=== PATIENT | female | born 1955 | race Caucasian/White ===

== ENCOUNTER 2017-05-13 12:44 | Outpatient (CLI) | payer OTHER ==
--- NOTE | 2017-05-13 17:24 | MMO ---
BILATERAL MAMMOGRAMS: HISTORY: Screening mammography. COMPARISON: 05/02/2016, 03/21/2015, and 03/10/2014. FINDINGS: Extremely dense fibroglandular densities are present throughout each breast, decreasing sensitivity of exam. Benign-appearing calcifications are stable. Metallic marker in the left breast indicates skin scar. No dominant mass or suspicious calcifications are apparent. The study was evaluated with the assistance of computer-aided detection. IMPRESSION: BI-RADS category 2. Benign findings. Suggest routine followup. POS: ALVERTO
== END 2017-05-13 12:45 | disposition home or self-care (01) ==
LOC: MAMMO 12:44
PROVIDERS: ATTEND Family Medicine
DX: Z12.31 Encounter for screening mammogram for malignant neoplasm of breast (principal)
CPT/HCPCS: 77067; G0202

== ENCOUNTER 2018-05-18 09:29 | Outpatient (CLI) | payer OTHER | END 2018-05-18 09:30 | disposition home or self-care (01) | LOC: BICMAMMO 09:29 | PROVIDERS: ATTEND Family Medicine | DX: Z12.31 Encounter for screening mammogram for malignant neoplasm of breast (principal) | CPT/HCPCS: 77063; 77067 ==

== ENCOUNTER 2019-05-23 08:03 | Outpatient (CLI) | payer OTHER ==
--- NOTE | 2019-05-23 08:58 | MMO ---
Bilateral MAMMO Bilat Screen [facility]. CLINICAL HISTORY: Patient is 64 years old and is seen for screening. The patient has no family history of breast cancer. The patient has a history of other cancer at age 39. The patient has a history of left Excisional Biopsy at age 19 - fibroadenoma. VIEWS: The views performed were: bilateral craniocaudal with tomosynthesis and bilateral mediolateral oblique with tomosynthesis. FILMS COMPARED: The present examination has been compared to prior imaging studies performed at [facility] on 03/21/2015, 05/03/2016, 05/13/2017 and 05/18/2018. This study has been interpreted with the assistance of computer-aided detection. MAMMOGRAM FINDINGS: The breasts are extremely dense, which may lower the sensitivity of mammography. There are stable benign appearing calcifications seen in both breasts. There are also vascular calcifications. There are no suspicious masses, suspicious calcifications, or new areas of architectural distortion. IMPRESSION: THERE IS NO MAMMOGRAPHIC EVIDENCE OF MALIGNANCY. A ROUTINE FOLLOW-UP MAMMOGRAM IN 1 YEAR IS RECOMMENDED. THE RESULTS OF THIS EXAM WERE SENT TO THE PATIENT. ACR BI-RADS Category 2 - Benign finding MAMMOGRAPHY NOTE: 1. A negative mammogram report should not delay a biopsy if a dominant of clinically suspicious mass is present. 2. Approximately 10% to 15% of breast cancers are not detected by mammography. 3. Adenosis and dense breasts may obscure an underlying neoplasm. Reported by: SHAMAR CASSIDY MD Electonically Signed: [id number]
== END 2019-05-23 08:04 | disposition home or self-care (01) ==
LOC: BICMAMMO 08:03
PROVIDERS: ATTEND Family Medicine
DX: Z12.31 Encounter for screening mammogram for malignant neoplasm of breast (principal); Z85.89 Personal history of malignant neoplasm of other organs and systems
CPT/HCPCS: 77063; 77067

== ENCOUNTER 2019-10-28 12:43 | Emergency (ER) | payer OTHER ==
[2019-10-28 13:16] LABS: #Basophils 0.1 thou/uL (0.0-0.2); #Eosinphils 1.5 thou/uL (0.0-0.7); #Lymphocytes 2.6 thou/uL (1.20-3.40); #Monocytes 0.7 thou/uL (0.11-0.59); #Neutrophils 4.5 thou/uL (1.40-6.50); %Basophils 0.8 % (0.0-1.0); %Eosinophils 16.2 % (0.0-10.0); %Lymphocytes 28.2 % (21.0-51.0); %Neutrophils 47.7 % (42.0-75.0); Hemoglobin 14.7 g/dL (12.0-16.0); Mean Corpuscular Volume 96.8 fL (78.0-98.0); Mean Platelet Volume 7.3 fL (7.4-10.4); Platelet Count 280 thou/uL (130-400); RBC Distribution Width 11.3 % (11.5-14.5); White Blood Cell (WBC) Count 9.3 thou/uL (4.8-10.8)
[2019-10-28 13:26] LABS: INR-International Normal Ratio 0.9; PTT 29.2 SEC (22.9-36.1); Prothrombin Time 12.4 SEC (12.0-14.7)
[2019-10-28 13:40] LABS: ALT (SGPT) 15 U/L (8-55); AST (SGOT) 20 U/L (5-34); Albumin 4.8 g/dL (3.4-4.8); Alkaline Phosphatase 78 U/L (40-110); Anion Gap 15 mmol/L (10-20); BUN (Urea Nitrogen) 14 mg/dL (9.8-20.1); Bilirubin, Total 0.3 mg/dL (0.2-1.2); CK (CPK) 31 U/L (29-168); Calc. Creatinine Clearance 0 mL/min (70-130); Calcium 10.4 mg/dL (7.8-10.44); Carbon Dioxide 27 mmol/L (23-31); Chloride 103 mmol/L (98-107); Estimated GFR-MDRD 57; Globulin 2.8 g/dL (2.4-3.5); Glucose 113 mg/dL (80-115); Magnesium 2.2 mg/dL (1.6-2.6); Potassium 4.1 mmol/L (3.5-5.1); Protein, Total 7.6 g/dL (6.0-8.3); Sodium 141 mmol/L (136-145)
[2019-10-28 13:45] LABS: Bilirubin Negative (Negative); Blood, Urine Negative (Negative); Clarity Clear (Clear); Glucose, Urine (Dipstick) Normal (Negative); Leukocyte Negative Leu/uL (Negative); Nitrite Negative (Negative); Protein, Urine (Dipstick) Negative (Neg-Trace); Urobilinogen Normal mg/dL (Less than 2)
[2019-10-28] MEDS ORDERED: Diltiazem HCl 125 MG, Admixture Fee 1 EACH in Sodium Chloride 0.9% 100 ML IVPB SCH (14:00)
--- NOTE | 2019-10-28 14:26 | RAD ---
CHEST 1 VIEW PORTABLE: Date: 10/28/2019 HISTORY: Patient had funny feeling in her chest, atrial flutter. COMPARISON: None. FINDINGS: Heart size is within normal limits. Lungs are clear. No confluent pneumonia, overt edema, or pleural effusion. IMPRESSION: No significant acute intrathoracic disease. POS: C
[2019-10-28] MEDS ORDERED: Enoxaparin Sodium 60 MG/0.6 ML SYRINGE ONE ×2 (15:53→15:56)
[2019-10-28 16:39] LABS: Troponin I 0.012 ng/mL (< 0.028)
--- NOTE | 2019-10-28 19:55 | CON ---
DATE OF CONSULTATION: 10/28/2019 HISTORY OF PRESENT ILLNESS: I am seeing Ms. 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 Her problems are: 1. Newly found atypical atrial flutter, converted into atrial fibrillation, and eventually sinus rhythm. 2. No prior cardiac history, remote history of negative cardiac workup for palpitations 5 years ago. 3. CHADS-VASc score of 2 based on age and gender. ALLERGIES: NONE NOTED. MEDICATIONS AT HOME: None. SUBJECTIVE: Ms. Patton is here due to dizziness, lightheadedness, and palpitations. She was noted to be in atrial fibrillation/flutter by Dr. Edouard and then she was brought to the ER. Diltiazem drip was initiated and she developed a slowing heart rates and eventually the atrial flutter changed to atrial fibrillation and finally terminated. She had remained chest-pain free throughout these episodes. She denies PND, orthopnea, or any signs of heart failure. No fever, chills, cough, and currently is completely asymptomatic after the orthodoxy of sinus rhythm. REVIEW OF SYSTEMS: Rest of 12-point review of system otherwise unremarkable. PAST MEDICAL HISTORY: Negative for prior history of heart disease or heart attacks. No history of arrhythmias either. She never had a stroke. Denies bleeding issues except for skin bruising. SOCIAL HISTORY: She is to Dr. Patton who is a primary care physician. She denies smoking, EtOH, or drug abuse. FAMILY HISTORY: Significant for dizziness, lightheadedness of elderly father. No other family history is noted. DIAGNOSTIC STUDIES: EKG was reviewed, revealing initially an atrial flutter, which appears to be atypical, likely [id number] atrial flutter with ventricular rate of 162 beats per minute. Subsequent EKG revealed a more disorganized atrial fibrillation at 122 beats per minute. The QTc is 450 milliseconds on atrial fibrillation, EKG. LABORATORY DATA: Reviewed. White cell count 9.3, hemoglobin 14.7, and platelet count is 280. Sodium 141, potassium 4.1, BUN is 14, and creatinine 0.98. ASSESSMENT AND PLAN: Ms. Patton is a 64-year-old woman who had remote history of short palpitations, now developed a more sustained atrial flutter. The duration is likely short, still based on symptoms, started this morning, but the exact duration is unclear. The rates were very rapid while she was in atrial flutter with more moderate heart rates seen once she disorganized into atrial fibrillation. Eventually, she converted back to sinus rhythm while on diltiazem drip. We discussed the nature and etiology of atrial fibrillation and flutter with her and her over the phone. She understands the implication of atrial fibrillation including potential stroke risk. She has CHADS-VASc score of 2. Anticoagulation would be reasonable and potential future recurrences are possible. On the other hand, also discussed the preference for suppressing atrial fibrillation especially during the COVID epidemic. I would recommend Multaq 400 mg twice a day and possible EKG checks next week for evaluating her QT interval. Should not be sufficient to suppress her heart rates, alternative antiarrhythmic agents could be considered after the workup. She may benefit from echocardiogram in the near future. Discussed with Dr. You, on-call engine test cell technician. We will arrange that. I also discussed these issues with Dr. Obregon and we agreed on this plan. She is likely able to discharge from the ER and I will have to see her back in next 2-4 weeks. Job ID: [id number] [facility] MEDICAL CENTEREdwina
== END 2019-10-28 16:35 | disposition home or self-care (01) ==
LOC: ERS 12:43
DX: I48.91 Unspecified atrial fibrillation (principal)
CPT/HCPCS: 36415; 71045; 80053; 81003; 82550; 83735; 83880; 84443; 84484; 85025; 85610; 85730; 93005; 94760; 96361; 96365; 96366; 96375; 96376; J1650; J3490

== ENCOUNTER 2020-05-28 08:16 | Outpatient (CLI) | payer MEDICARE ==
--- NOTE | 2020-05-28 09:14 | MMO ---
Bilateral MAMMO Bilat Screen [facility]. CLINICAL HISTORY: Patient is 65 years old and is seen for screening. The patient has no family history of breast cancer. The patient has a history of other cancer at age 39. The patient has a history of left Excisional Biopsy at age 19 - fibroadenoma. VIEWS: The views performed were: bilateral craniocaudal with tomosynthesis and bilateral mediolateral oblique with tomosynthesis. FILMS COMPARED: The present examination has been compared to prior imaging studies performed at [facility] on 05/03/2016, 05/13/2017, 05/18/2018 and 05/23/2019. This study has been interpreted with the assistance of computer-aided detection. MAMMOGRAM FINDINGS: The breasts are extremely dense, which may lower the sensitivity of mammography. There are benign appearing and vascular calcifications seen in both breasts. There are no suspicious masses, suspicious calcifications, or new areas of architectural distortion. IMPRESSION: THERE IS NO MAMMOGRAPHIC EVIDENCE OF MALIGNANCY. A ROUTINE FOLLOW-UP MAMMOGRAM IN 1 YEAR IS RECOMMENDED. THE RESULTS OF THIS EXAM WERE SENT TO THE PATIENT. ACR BI-RADS Category 2 - Benign finding MAMMOGRAPHY NOTE: 1. A negative mammogram report should not delay a biopsy if a dominant of clinically suspicious mass is present. 2. Approximately 10% to 15% of breast cancers are not detected by mammography. 3. Adenosis and dense breasts may obscure an underlying neoplasm. Reported by: MARIS SOLIMAN MD Electonically Signed: [id number]
== END 2020-05-28 08:17 | disposition home or self-care (01) ==
LOC: BICMAMMO 08:16
PROVIDERS: ATTEND Family Medicine
DX: Z12.31 Encounter for screening mammogram for malignant neoplasm of breast (principal); Z85.89 Personal history of malignant neoplasm of other organs and systems
CPT/HCPCS: 77063; 77067

== ENCOUNTER 2021-05-31 11:11 | Outpatient (CLI) | payer MEDICARE | END 2021-05-31 11:12 | disposition home or self-care (01) | LOC: BICMAMMO 11:11 | PROVIDERS: ATTEND Family Medicine | DX: Z12.31 Encounter for screening mammogram for malignant neoplasm of breast (principal); Z85.89 Personal history of malignant neoplasm of other organs and systems | CPT/HCPCS: 77063; 77067 ==

== ENCOUNTER 2022-06-02 10:03 | Outpatient (CLI) | payer MEDICARE | END 2022-06-02 10:04 | disposition home or self-care (01) | LOC: BICMAMMO 10:03 | PROVIDERS: ATTEND Family Medicine | DX: Z12.31 Encounter for screening mammogram for malignant neoplasm of breast (principal); Z85.3 Personal history of malignant neoplasm of breast; Z85.89 Personal history of malignant neoplasm of other organs and systems | CPT/HCPCS: 77063; 77067 ==

== ENCOUNTER 2022-08-05 09:49 | Outpatient (CLI) | payer MEDICARE | END 2022-08-05 09:50 | disposition home or self-care (01) | LOC: BICMAMMO 09:49 | PROVIDERS: ATTEND Family Medicine | DX: M81.0 Age-related osteoporosis without current pathological fracture (principal); E55.9 Vitamin D deficiency, unspecified; M85.851 Other specified disorders of bone density and structure, right thigh; M85.852 Other specified disorders of bone density and structure, left thigh | CPT/HCPCS: 77080 ==

== ENCOUNTER 2023-06-02 07:36 | Outpatient (CLI) | payer MEDICARE | END 2023-06-02 07:37 | disposition home or self-care (01) | LOC: ULT 07:36 | PROVIDERS: ATTEND Family Medicine | DX: R10.13 Epigastric pain (principal) | CPT/HCPCS: 76700 ==

== ENCOUNTER 2023-06-23 10:07 | Outpatient (CLI) | payer MEDICARE | END 2023-06-23 10:08 | disposition home or self-care (01) | LOC: BICMAMMO 10:07 | PROVIDERS: ATTEND Family Medicine | DX: Z12.31 Encounter for screening mammogram for malignant neoplasm of breast (principal) | CPT/HCPCS: 77063; 77067 ==

== ENCOUNTER 2024-06-27 13:30 | Outpatient (CLI) | payer MEDICARE | END 2024-06-27 13:31 | disposition home or self-care (01) | LOC: BICMAMMO 13:30 | PROVIDERS: ATTEND Family Medicine | DX: Z12.31 Encounter for screening mammogram for malignant neoplasm of breast (principal); Z85.89 Personal history of malignant neoplasm of other organs and systems | CPT/HCPCS: 77063; 77067 ==

== ENCOUNTER 2024-07-28 08:11 | Outpatient (CLI) | payer MEDICARE | END 2024-07-28 08:12 | disposition home or self-care (01) | LOC: BICMAMMO 08:11 | PROVIDERS: ATTEND Family Medicine | DX: Z78.0 Asymptomatic menopausal state (principal); M85.851 Other specified disorders of bone density and structure, right thigh; M85.852 Other specified disorders of bone density and structure, left thigh; M81.0 Age-related osteoporosis without current pathological fracture | CPT/HCPCS: 77080 ==

== ENCOUNTER 2025-06-30 09:27 | Outpatient (CLI) | payer MEDICARE | END 2025-06-30 09:28 | disposition home or self-care (01) | LOC: BICMAMMO 09:27 | PROVIDERS: ATTEND Family Medicine | DX: Z12.31 Encounter for screening mammogram for malignant neoplasm of breast (principal); Z85.89 Personal history of malignant neoplasm of other organs and systems | CPT/HCPCS: 77063; 77067 ==